=== PATIENT | male | born 2000 | race Asian ===

== ENCOUNTER 2021-02-20 18:33 | Emergency (ER) | payer SELFPAY ==
[2021-02-20 18:36] VITALS: TEMP 97.2
[2021-02-20 20:11] VITALS: BP 123/99; PULSE 90
== END 2021-02-20 20:11 | disposition home or self-care (01) ==
LOC: COL.ER 18:33
DX: M54.2 Cervicalgia (principal); R07.81 Pleurodynia; V43.52XA Car driver injured in collision with other type car in traffic accident, initial encounter